=== PATIENT | male | born 1980 | race Caucasian/White ===

== ENCOUNTER 2021-05-14 10:15 | Emergency (ER) | payer BC, OTHER ==
[2021-05-14 10:36] VITALS: BP 150/83; PULSE 57; TEMP 97.9; BMI 25.1
[2021-05-14] MEDS ORDERED: KETOROLAC TROMETHAMINE 30 MG/1 ML VIAL IM ONE (10:59)
== END 2021-05-14 11:40 | disposition home or self-care (01) ==
LOC: JERFT 10:15
PROC: 3E0233Z Introduction of Anti-inflammatory into Muscle, Percutaneous Approach (ICD-10-PCS; principal; 2021-05-14)
DX: S86.111A Strain of other muscle(s) and tendon(s) of posterior muscle group at lower leg level, right leg, initial encounter (principal); X50.0XXA Overexertion from strenuous movement or load, initial encounter; Y93.67 Activity, basketball
CPT/HCPCS: 93971-TC; 99284-25